=== PATIENT | female | born 1970 | race Caucasian/White ===

== ENCOUNTER 2020-09-29 17:01 | Emergency (ER) | payer OTHER ==
[~2020-09-29] VITALS: Ht 162.6 cm; Wt 54.4 kg
[2020-09-29] MEDS ORDERED: SYNTHROID112 MCG (17:18)
[2020-09-29] MEDS ORDERED: AMLODIPINE-OLM1 EAC2 (17:18)
[2020-09-29] MEDS ORDERED: COZAAR100 MG (17:18)
[2020-09-29] MEDS ORDERED: ZYRTEC10 MG PO (19:57)
[2020-09-29] MEDS ORDERED: TUSNEL LIQUID178 ML PO (19:57)
== END 2020-09-29 20:06 | disposition home or self-care (01) ==
LOC: ER 17:01
DX: R53.1 Weakness (principal); R05 Cough

== ENCOUNTER 2023-01-29 08:56 | Emergency (ER) | payer OTHER ==
[~2023-01-29] VITALS: Ht 160 cm; Wt 56.7 kg
[~2023-01-29 08:56] MED LIST: AMLODIPINE-OLM1 EAC2; COZAAR100 MG; SYNTHROID112 MCG; TUSNEL LIQUID178 ML PO; ZYRTEC10 MG PO
[2023-01-29] MEDS ORDERED: KETO10TA2 PO (15:09)
== END 2023-01-29 15:35 | disposition home or self-care (01) ==
LOC: ER 08:56
DX: S93.402A Sprain of unspecified ligament of left ankle, initial encounter (principal); W18.30XA Fall on same level, unspecified, initial encounter; Y93.9 Activity, unspecified; Y92.019 Unspecified place in single-family (private) house as the place of occurrence of the external cause; Y99.9 Unspecified external cause status